=== PATIENT | male | born 1940 | race Caucasian/White ===

== ENCOUNTER 2017-03-01 09:40 | Emergency (ER) | payer MEDICARE, OTHER ==
[2017-03-01 10:17] LABS: BASOPHILS 0.8 % (0.0-2.0); EOSINOPHILS 0 % (0-7); HEMATOCRIT 38.2 % (42.0-54.0); HEMOGLOBIN 13.6 g/dL (13.5-17.5); IMMATURE GRANULOCYTES 0.2 % (0-5); LYMPHOCYTES 18.8 % (15-50); MCH 36.3 pg (26.0-34.0); MCHC 35.6 g/dL (31.0-37.0); MCV 101.9 fL (80.0-100.0); MEAN PLATELET VOLUME 10.7 fL (7.4-10.4); MONOCYTES 16.1 % (2-11); NEUTROPHILS 64.1 % (40-80); PLATELET COUNT 97 10x3/uL (130-400); RBC 3.75 10x6/uL (4.20-6.10); RDW 16.6 % (11.5-14.5); WBC 5.2 10x3/uL (4.8-10.8)
[2017-03-01 10:39] LABS: ALBUMIN 2.4 g/dL (3.4-5.0); ANION GAP 13.5 mmol/L (8-16); BILIRUBIN - TOTAL 3.5 mg/dL (0.2-1.3); CALCIUM 8.5 mg/dL (8.5-10.1); CARBON DIOXIDE 24.3 mmol/L (21.0-32.0); CREATININE - SERUM 1.1 mg/dL (0.6-1.3); POTASSIUM - SERUM 4.8 mmol/L (3.5-5.1); PROTEIN - SERUM 5.6 g/dL (6.4-8.2)
[2017-03-01 11:45] LABS: MAGNESIUM - SERUM 1.2 mg/dL (1.8-2.4)
[2017-03-01 12:10] LABS: APPEARANCE HAZY (CLEAR); BILIRUBIN NEGATIVE (NEGATIVE); COLOR AMBER (YELLOW); GLUCOSE NEGATIVE (NEGATIVE); KETONE NEGATIVE (NEGATIVE); LEUKOCYTE ESTERASE TRACE (NEGATIVE); NITRITE NEGATIVE (NEGATIVE); PROTEIN 1+ mg/dL (NEGATIVE); UROBILINOGEN NORMAL (NORMAL)
[2017-03-01 12:11] LABS: AMORPHOUS SEDIMENT >1+ /lpf (NONE SEEN); BACTERIA MANY /hpf (NONE SEEN); EPITHELIAL CELLS 0-5 /hpf (0-5); GRANULAR CAST NONE SEEN /lpf (NONE SEEN); HYALINE CAST NONE SEEN /lpf (NONE SEEN); MUCUS NONE SEEN /lpf (NONE SEEN); RED CELL CAST NONE SEEN /lpf (NONE SEEN); RED CELLS - URINE NONE SEEN /hpf (0-5); SPERMATOZOA NONE SEEN /hpf (NONE SEEN); WAXY CAST NONE SEEN /lpf (NONE SEEN); WHITE CELLS - URINE OCC /hpf (0-5); YEAST NONE SEEN /hpf (NONE SEEN)
[2017-03-01 12:41] LABS: INR 2.12 (0.85-1.17); PROTIME 23.8 SECONDS (11.6-15.0)
== END 2017-03-01 13:15 | disposition home or self-care (01) ==
LOC: D.ER 09:40
PROVIDERS: Emergency Medicine
DX: K74.60 Unspecified cirrhosis of liver (principal); E87.1 Hypo-osmolality and hyponatremia; E83.42 Hypomagnesemia

== ENCOUNTER → 2017-03-13 13:03 | Outpatient (CLI) | payer MEDICARE, OTHER | END | disposition home or self-care (01) | LOC: D.LAB 13:03 | DX: K74.60 Unspecified cirrhosis of liver (principal) ==

== ENCOUNTER → 2017-03-18 07:49 | Outpatient (CLI) | payer MEDICARE, OTHER ==
[~2017-03-18 07:49] MED LIST: ACTIGALL 300 M300 MG PO; ALDACTONE100 MG PO; BUSPAR 15 MG TA15 MG PO; CENTRUM COMPLE1 EACH PO; CHRONULAC30 ML PO; FUROSEMIDE40 MG PO; HYDROXYZINE HCL50 MG PO; LISINOPRIL2.5 MG PO; METFORMIN HCL500 M1 PO; PRESERVISION AR1 CAP PO; PROTONIX40 MG PO; ULTRAM50 MG PO; VITAMIN D250000 UNIT PO; XIFAXAN550 MG PO; ZOFRAN8 MG PO
[2017-03-18 08:43] LABS: CREATININE - SERUM 1.1 mg/dL (0.6-1.3)
[2017-04-01 07:18] VITALS: BMI 26.8
== END | disposition home or self-care (01) ==
LOC: D.LAB 07:49 → D.MRI 08:30
PROVIDERS: Internal Medicine Gastroenterology
DX: K74.60 Unspecified cirrhosis of liver (principal); K72.90 Hepatic failure, unspecified without coma

== ENCOUNTER → 2017-03-26 10:44 | Outpatient (CLI) | payer MEDICARE, OTHER ==
[2017-03-26 11:35] LABS: ANION GAP 6.2 mmol/L (8-16); CALCIUM 8.2 mg/dL (8.5-10.1); CARBON DIOXIDE 31.8 mmol/L (21.0-32.0); CREATININE - SERUM 1.3 mg/dL (0.6-1.3)
== END | disposition home or self-care (01) ==
LOC: D.LAB 03-20 08:00
PROVIDERS: Internal Medicine Gastroenterology
DX: K74.60 Unspecified cirrhosis of liver (principal)

== ENCOUNTER 2017-04-01 05:31 | Outpatient (CLI) | payer MEDICARE, OTHER ==
[~2017-04-01] VITALS: Ht 175.3 cm; Wt 82.3 kg
[2017-04-01] MEDS ORDERED: PRESERVISION AR1 CAP PO (06:58)
[2017-04-01] MEDS ORDERED: BUSPAR 15 MG TA15 MG PO (06:59)
[2017-04-01] MEDS ORDERED: CENTRUM COMPLE1 EACH PO (06:59)
[2017-04-01] MEDS ORDERED: FUROSEMIDE40 MG PO (07:00)
[2017-04-01] MEDS ORDERED: HYDROXYZINE HCL50 MG PO (07:00)
[2017-04-01] MEDS ORDERED: CHRONULAC30 ML PO (07:02)
[2017-04-01] MEDS ORDERED: LISINOPRIL2.5 MG PO (07:02)
[2017-04-01] MEDS ORDERED: METFORMIN HCL500 M1 PO (07:03)
[2017-04-01] MEDS ORDERED: ZOFRAN8 MG PO (07:04)
[2017-04-01] MEDS ORDERED: PROTONIX40 MG PO (07:04)
[2017-04-01] MEDS ORDERED: ULTRAM50 MG PO (07:05)
[2017-04-01] MEDS ORDERED: ALDACTONE100 MG PO (07:05)
[2017-04-01] MEDS ORDERED: ACTIGALL 300 M300 MG PO (07:05)
[2017-04-01 07:06] LABS: BASOPHILS 0.6 % (0-2); EOSINOPHILS 1.2 % (0-7); HEMATOCRIT 36.8 % (42.0-54.0); HEMOGLOBIN 12.7 g/dL (13.5-17.5); IMMATURE GRANULOCYTES 0.2 % (0-5); LYMPHOCYTES 16.6 % (15-50); MCH 35.3 pg (26.0-34.0); MCHC 34.5 g/dL (31.0-37.0); MCV 102.2 fL (80.0-100.0); MEAN PLATELET VOLUME 11.1 fL (7.4-10.4); MONOCYTES 13.6 % (2-11); NEUTROPHILS 67.8 % (40-80); RDW 14.7 % (11.5-14.5); WBC 5.1 10x3/uL (4.8-10.8)
[2017-04-01] MEDS ORDERED: XIFAXAN550 MG PO (07:06)
[2017-04-01] MEDS ORDERED: VITAMIN D250000 UNIT PO (07:06)
[2017-04-01 07:08] LABS: PLATELET COUNT 121 10x3/uL (130-400)
[2017-04-01 07:18] VITALS: BP 112/74; Ht 175.3 cm; Wt 82.3 kg
[2017-04-01 07:26] LABS: INR 1.96 (0.85-1.17); PROTIME 22.3 SECONDS (11.6-15.0)
[2017-04-01 07:27] LABS: CALCIUM 7.6 mg/dL (8.5-10.1); CARBON DIOXIDE 33.3 mmol/L (21.0-32.0); CREATININE - SERUM 1.2 mg/dL (0.6-1.3); POTASSIUM - SERUM 3.3 mmol/L (3.5-5.1)
[2017-04-01 07:36] LABS: APTT 36.1 SECONDS (22.8-39.4)
--- NOTE | 2017-04-01 09:10 | NUR ---
0855-RECEIVED PT FROM IR AWAKE AND ALERT. RIGHT SIDE BANDAGE CDI WITHOUT ANY EDEMA NOTED AT THIS TIME. POX 92% ON ROOM AIR. AT BEDSIDE WILL CONTINUE TO MONITOR. 0910-REG TRAY GIVEN NO N/V.BHARATH LCONTINUE TO MONITOR
--- NOTE | 2017-04-01 09:28 | NUR ---
0928-REPORRT GIVEN TO TRENT L[facility]ERS
== END 2017-04-01 11:30 | disposition home or self-care (01) ==
LOC: D.OPS 05:31 → D.SP 08:00 → D.OPS 08:00
PROVIDERS: General Practice
DX: K74.60 Unspecified cirrhosis of liver (principal); R18.8 Other ascites